=== PATIENT | female | born 1945 | race Caucasian/White ===

== ENCOUNTER → 2017-11-10 | Day surgery (SDC) | END | disposition home or self-care (01) | DX: J34.89 Other specified disorders of nose and nasal sinuses (principal); J34.2 Deviated nasal septum; R09.81 Nasal congestion; R09.82 Postnasal drip; R05 Cough; J34.3 Hypertrophy of nasal turbinates; S02.2XXA Fracture of nasal bones, initial encounter for closed fracture | CPT/HCPCS: 00160; 30130; 30520; J2250; J3010; J7120 ==